=== PATIENT | male | born 1950 | race Caucasian/White ===

== ENCOUNTER 2017-01-18 20:28 | Emergency (ER) | payer MEDICARE ==
[~2017-01-18] VITALS: Ht 167.6 cm; Wt 90.9 kg
[2017-01-18 20:45] VITALS: BP 174/100; PULSE 79; RESP 24; O2SAT 100
[2017-01-18] MEDS ORDERED: SIMV10TA4 PO (21:07)
[2017-01-18] MEDS ORDERED: TAMS0.4C98 PO (21:07)
[2017-01-18] MEDS ORDERED: CALC-1009 PO (21:07)
[2017-01-18] MEDS ORDERED: OMEP20CA11 PO (21:07)
[2017-01-18] MEDS ORDERED: ASPI325T32 PO (21:07)
[2017-01-18] MEDS ORDERED: LISI10TA PO (21:07)
[2017-01-18] MEDS ORDERED: FINA5TAB9 PO (21:07)
[2017-01-18] MEDS ORDERED: RANI150C4 PO (21:07)
[2017-01-18] MEDS ORDERED: CETI-343 PO (21:07)
[2017-01-18] MEDS ORDERED: 0.9% Sodium Chloride 1,000 ML IV ONE ×3 (21:08→22:34)
[2017-01-18] MEDS ORDERED: Ondansetron 2 mg/mL 2 mL Inj IVPUSH PRN (21:10)
[2017-01-18 21:20] LABS: BASOPHILS % (AUTO) 0.5 % (0-3); MONOCYTES % (AUTO) 14.7 % (4-12); Mean Corpuscular Hemoglobin 30.7 pg (27.0-35.0); Mean Corpuscular Volume 89.4 fL (81-100); NEUTROPHILS % (AUTO) 40.3 % (40-74); Platelet Count 177 bil/L (150-400)
[2017-01-18] MEDS ORDERED: HYDROmorphone 1 mg/mL Inj IVPUSH ONE (22:00)
--- NOTE | 2017-01-18 22:24 | ED.REPORT ---
HPI-General Illness Date of Service Jan 18, 2017 ED Provider: Manohar Fofana MD Pt is a 66 y/o male w/ a hx of HTN, GERD, hyperlipidemia, presenting to the ED c /o abdominal pain onset tonight. The patient ate some pizza and shortly afterward began to experience severe abdominal cramping. He tried ranitidine and Rolaids for his pain without relief. He attributes his pain to indigestion. He c/o associated nausea. Pt denies vomiting, fever, chills. He denies any history of cardiac disease. Nursing Notes Stated Complaint: SEVERE STOMACH PAIN Chief Complaint: Male Abdominal Pain Nursing Notes Reviewed: Yes Allergies: Coded Allergies: levofloxacin (Verified Allergy, Intermediate, 01/18/17) Scheduled Aspirin (Aspirin) 325 Mg Tablet 325 MG PO 1/2 HR AFTER DINNER Calcium Carbonate/Vitamin D3 (Calcium 600 + Vit D3 800 Tab) 600 Mg-800 Tablet 1 EACH PO DAILY Cetirizine HCl (24Hour Allergy) 10 Mg Tablet 10 MG PO DIALY Finasteride (Finasteride) 5 Mg Tablet 5 MG PO DAILY Lisinopril (Lisinopril) 10 Mg Tablet 10 MG PO AM Omeprazole (Omeprazole) 20 Mg Capsule.dr 20 MG PO DAILY Ranitidine (Ranitidine) 150 Mg Capsule 150 MG PO HS Simvastatin (Simvastatin) 10 Mg Tablet 10 MG PO HS Tamsulosin (Flomax) 0.4 Mg Capsule 0.4 MG PO BID General Time Seen by MD: 20:55 Chief Complaint Abdominal pain Hx Obtained From: Patient Arrived By: Walk-in Sudden in Onset?: Yes Onset Occurred: 1 - 4 hours ago Symptom Duration: Since onset Location: : Abdomen Quality: Cramping, Painful Severity: Current: Moderate Severity: Maximum: Severe Recent Healthcare: No recent doctor visit, No recent hospitalization Similar Sx Previous: No Past Medical History Past Medical History Hypertension BPH GERD Hyperlipidemia Past Surgical History T&A Carpal tunnel Smoking History Never Smoker Ambulatory Status Independent Review of Systems Full Review of Systems Constitutional: Denies: Chills, Fever GI: Reports: Abdominal pain, Nausea, Denies: Vomiting Complete sys rev & neg: except as marked. Physical Exam Vital Signs Vital Signs Date Time Temp Pulse Resp B/P Pulse Ox O2 Delivery O2 Flow Rate FiO2 01/19/17 02:19 37.2 58 16 159/86 97 Room Air 01/19/17 01:05 36.9 66 16 141/82 97 Room Air 01/18/17 20:45 36 79 24 174/100 100 Room Air Initial VS: Reviewed, Vital signs abnormal Head / Eyes: Atraumatic, Normocephalic, PERRL ENT: Mucous membranes moist, Conjunctiva normal, No scleral icterus Neck: Supple, Full range of motion Respiratory: Breath sounds normal, Clear to auscultation, No respiratory distress Cardiovascular: Regular rate & rhythm, Heart sounds normal, Intact distal pulses Extremities: Vascular intact, Neuro intact, No swelling Skin: Warm, Dry, No cyanosis Neurologic: Alert, Oriented, Nonfocal Psychiatric: Mood/affect normal, Behavior normal, Normal thought content General/Constitutional: Awake, Alert, No acute distress, Cooperative, Not toxic appearing Abdomen: Atraumatic, Soft, No guarding, No rebound, No distention, No palpable mass Tenderness/Guarding/Rebound: Positive: Tender RUQ... (Mild), Tender epigastric (mild) Interpretation & Diagnostics Interpretation & Diagnostics: US abdomen: Mild gallbladder wall thickening, difficult exam due to body habitus and bowel gas. No gross cholecystitis. Preliminary read by [employer], official read pending Lab Results Interpretation Result Diagram: 01/18/17 2100 01/18/17 2100 Test 01/18/17 21:00 01/18/17 22:45 01/19/17 00:45 White Blood Count 7.7th/mm3 (3.8-10.1) Red Blood Count 5.01mil/mm3 (4.40-5.80) Hemoglobin 15.4g/dL (13.8-17.2) Hematocrit 44.8% (41.0-50.0) Mean Corpuscular Volume 89.4fL (81-100) Mean Corpuscular Hemoglobin 30.7pg (27.0-35.0) Mean Corpuscular Hemoglobin Concent 34.4% (32.0-37.0) Red Cell Distribution Width 12.3% (12.3-15.4) Platelet Count 177bil/L (150-400) Neutrophils (%) (Auto) 40.3% (40-74) Lymphocytes (%) (Auto) 40.2% (14-46) Monocytes (%) (Auto) 14.7% (4-12) Eosinophils (%) (Auto) 4.0% (0-5) Basophils (%) (Auto) 0.5% (0-3) Sodium Level 139mEq/L (134-144) Potassium Level 3.5mEq/L (3.5-5.2) Chloride Level 101mEq/L (97-108) Carbon Dioxide Level 21mmol/L (18-29) Blood Urea Nitrogen 23mg/dL (8-27) Creatinine 1.13mg/dL (0.76-1.27) Estimat Glomerular Filtration Rate 69mL/min (>59) Glucose Level 160mg/dL (60-99) Calcium Level 9.5mg/dL (8.5-10.1) Magnesium Level 2.0mg/dL (1.6-2.6) Total Bilirubin 0.5mg/dL (0.0-1.2) Aspartate Amino Transf (AST/SGOT) 27U/L (0-50) Alanine Aminotransferase (ALT/SGPT) 26U/L (0-44) Alkaline Phosphatase 63U/L (25-160) Total Protein 7.5g/dL (6.4-8.4) Albumin 4.3g/dL (3.4-5.0) Lipase 50U/L (13-60) Lactic Acid Level 1.5mmol/L (0.4-2.0) Hold Urine Received (Received) CT Abd / Pelvis Interpretation Impression: Cholelithiases. Interpreted by Troy Price MD Study type: Abdominal CT IV contrast Interpretation / Wet Read by: Interpret - Radiologist Re-Eval/Medical Decision Med Decision/Clinical Course Pt is a 66 y/o male w/ a hx of HTN, GERD, hyperlipidemia, presenting to the ED c /o abdominal pain onset tonight. The patient ate some pizza and shortly afterward began to experience severe abdominal cramping. He tried ranitidine and Rolaids for his pain without relief. He attributes his pain to indigestion. He c/o associated nausea. Pt denies vomiting, fever, chills. He denies any history of cardiac disease. Here in the emergency department the patient is afebrile with stable vital signs and examination as above. He was treated with IV fluids, Zofran for nausea and hydromorphone for pain. Labs notable as below: CBC: Unremarkable CMP: Unremarkable except glucose of 160 Lactic acid: 3.4 LFTs normal US abdomen: Interpretation: Fatty liver CT abd/pelvis: Impression: Cholelithiasis Overall presentation seems consistent with cholelithiasis. The onset of the pain, nature of the pain and imaging findings as above all support biliary colic as a cause of this patient's symptoms. At this time, he is stable, tolerating PO and in no apparent distress. Serial abdominal examinations are reassuring. I feel that the patient is appropriate for outpatient management. He has been referred to surgery though would prefer to follow up in [facility] where he lives. He is advised to return to the emergency room immediately for any fevers, worsening pain, recurrent pain or other concerning signs or symptoms. He will avoid fatty foods. I prescribed a limited supply of Gl[place] for any pain that he may develop. At this time, feel that he is appropriate for discharge home. Prior to discharge follow-up and return precautions were reviewed in detail with the patient who verbalized understanding and agreement with the plan. The patient was discharged in stable condition. Time of Eval: 01:16 Re-Evaluation/Progress Note: Pt rechecked. Discussed imaging. Informed pt of plan for treatment. Pt understands and agrees with plan for treatment. F/U instructions and RTER warnings given. All questions addressed. Counseled Regarding: Diagnosis, Lab results, Need for follow-up, When/why to return to ED Discharge & Departure Primary Impression: Cholelithiasis Cholelithiasis location: gallbladder Cholecystitis presence: without cholecystitis Biliary obstruction: without biliary obstruction Qualified Code : K80.20 - Calculus of gallbladder without cholecystitis without obstruction Additional Impressions: Fatty liver Biliary colic Right upper quadrant pain Disposition: Home Discharge Condition All VS Reviewed: Yes Condition: Stable Patient Instructions: Gallstones (ED) Additional Instructions: Thank you for seeking care at the emergency room. The CT scan showed gallstones. Your pain was related to a gallbladder attack. The ultrasound showed a fatty liver. Our primary goal today in the ED was to evaluate you for any life-threatening conditions. Your evaluation was reassuring. You will be discharged with a prescription for Vicodin. Take 1 tab every 6 hours as needed for severe or breakthrough pain. Avoid fatty and greasy foods. You should follow-up with your primary doctor in the next week to get a referral to see a surgeon. You should return to the ED immediately if you develop fevers, vomiting, worsening pain, lightheadedness, weakness or any other concerning signs or symptoms. Thank you for letting us partake in your care today. Scribe Attestation Portions of this note were transcribed by Diogenes Gross. I, Dr. Fofana, personally performed the history, physical exam and medical decision-making; I reviewed and confirmed the accuracy of the information in the transcribed note. Signed by Efrain Joy, 01/18/17 - 2299 Manohar Fofana MD Jan 18, 2017 22:24 DIOGENES GROSS Jan 18, 2017 22:25
[2017-01-19 01:05] VITALS: BP 141/82; PULSE 66; RESP 16; O2SAT 97
[2017-01-19] MEDS ORDERED: _HYDROcodone/APAP 5-325 mg Tablet PO PRN (01:20)
[2017-01-19 02:19] VITALS: BP 159/86; PULSE 58; RESP 16; O2SAT 97
--- NOTE | 2017-01-19 07:38 | DRSVH ---
PROCEDURE: US ABDOMEN ([id number]) INDICATIONS: ruq pain, postprandial TECHNIQUE: Real-time scanning was performed of the abdominal and retroperitoneal organs, with image documentatio n. COMPARISON: [facility], CT, CT ABD PELVIS W CON, 01/18/2017, 23:35. FINDINGS: Liver: Liver is coarsely echogenic without focal lesion suggestive of diffuse hepatocellular disease/ fatty infiltration. Gallbladder: No cholelithiasis. No sonographic Lam sign or pericholecystic fluid. No definite gall bladder wall thickening. The anterior gallbladder wall measures approximately 3 mm, borderline althou gh doubtful clinical significance given the appearance on same day CT. Biliary ducts: Intrahepatic bile ducts are non-dilated. Extrahepatic bile duct caliber measures 3 m m. Normal is 6-7 mm or less in diameter, or 10 mm or less post-cholecystectomy. Pancreas: Visualized portions of the pancreas are sonographically unremarkable. The tail is not wel l-seen due to shadowing bowel gas Spleen: Spleen is normal in size and homogeneous in echotexture. Kidneys: Kidneys are normal in size and echotexture. Right kidney measures 10.6 cm long; left kidne y measures 10.0 cm long. No hydronephrosis or nephrolithiasis. No solid masses. Aorta: Visualized aorta is normal in caliber at less than 3 cm. Iliacs: Proximal common iliac arteries are normal in caliber at less than 2.5 cm. IVC: Intrahepatic inferior vena cava is patent. Miscellaneous: No free abdominal fluid. IMPRESSION: Unremarkable ultrasound. Of note, multiple, subcentimeter gallstones seen on comparison same day CT a re not well sonographically visualized. Otherwise, no sonographic criteria of acute cholecystitis. Coarsely echogenic liver suggesting diffuse hepatocellular disease/fatty infiltration Dictated by: Juan Diego Jesus M.D. on 01/19/2017 at 7:31 Approved by: Juan Diego Jesus M.D. on 01/19/2017 at 7:36
--- NOTE | 2017-01-19 07:59 | DRSVH ---
PROCEDURE: CT ABDOMEN AND PELVIS WITH CONTRAST ([id number]) INDICATIONS: abd pain TECHNIQUE: After the administration of intravenous contrast, 5 mm thick sections acquired from the diaphragm to the symphysis. 5 mm coronal and sagittal reformats were acquired. For radiation dose reduction, the following was used: automated exposure control, adjustment of mA and/or kV according to patient siz e. COMPARISON: None. FINDINGS: Image quality: Excellent. ABDOMEN: Lung bases: Lung bases are clear. Heart size is normal. Solid organs: Liver and spleen are normal in size and enhancement. Gallbladder contains multiple lynne bcentimeter gallstones however no gallbladder wall thickening or pericholecystic inflammatory appeara nce. Biliary system is non dilated. Pancreas enhances normally. No adrenal nodules. Kidneys demon strate normal size and enhancement, without hydronephrosis. Peritoneum and bowel: Bowel loops demonstrate normal wall thickness and caliber. No free fluid or a ir. Scattered incidental colonic diverticula. The rectum is decompressed otherwise unremarkable. Anabella endix appears normal Nodes and vessels: No retroperitoneal or mesenteric adenopathy by size criteria. Aorta and inferior vena cava are normal in size. Miscellaneous: No ventral hernias. PELVIS: Genitourinary: Bladder wall thickness is normal. Miscellaneous: No pelvic adenopathy. Bones: No suspicious bony lesions. No vertebral body compression fractures. IMPRESSION: Cholelithiasis. No acute abnormality. Incidental colonic diverticulosis. Normal appendix Dictated by: Juan Diego Jesus M.D. on 01/19/2017 at 7:53 Approved by: Juan Diego Jesus M.D. on 01/19/2017 at 7:57
== END 2017-01-19 02:15 | disposition home or self-care (01) ==
LOC: SED 20:28
DX: K80.20 Calculus of gallbladder without cholecystitis without obstruction (principal); K76.0 Fatty (change of) liver, not elsewhere classified; I10 Essential (primary) hypertension; K21.9 Gastro-esophageal reflux disease without esophagitis; E78.5 Hyperlipidemia, unspecified; Z79.82 Long term (current) use of aspirin; Z88.1 Allergy status to other antibiotic agents
CPT/HCPCS: 36415; 74177; 76700; 80053; 83605; 83690; 83735; 85025; 96361; 96374; 96375; 99285; J1170; J2405; J7030; Q9967